=== PATIENT | female | born 1980 | race Caucasian/White ===

== ENCOUNTER 2016-09-05 18:44 | Emergency (ER) | payer MEDICARE | END 2016-09-05 20:43 | disposition home or self-care (01) | LOC: ER1 18:44 | DX: L23.7 Allergic contact dermatitis due to plants, except food (principal); Z88.0 Allergy status to penicillin; Z88.8 Allergy status to other drugs, medicaments and biological substances | CPT/HCPCS: 96372; 99282; J1100 ==

== ENCOUNTER 2020-10-17 13:09 | Emergency (ER) | payer OTHER ==
[~2020-10-17 13:09] MED LIST: DOSS PO; FLEXERIL 10 MG10 MG PO; IBUPROFEN800 MG PO; LODINE CAP 300300 MG PO; NAPROSYN500 MG PO; NORFLEX 100 MG100 MG PO; PERCOCET 7.5-31 EACH PO; PHENERGAN 12.12.5 M1 PO; SUBOXONE 8 MG-1 EACH SL
== END 2020-10-17 14:00 | disposition home or self-care (01) ==
LOC: ER1 13:09
DX: L03.114 Cellulitis of left upper limb (principal)
CPT/HCPCS: 99283